=== PATIENT | male | born 1995 | race Two or more races ===

== ENCOUNTER 2020-08-17 04:53 | Emergency (ER) | payer SELFPAY ==
[~2020-08-17] VITALS: Ht 167.6 cm; Wt 83.0 kg
[2020-08-17 04:58] VITALS: BP 133/85
[2020-08-17] MEDS ORDERED: FLUORESCEIN OPHTHALMIC 1 MG STRIP ONE (05:13)
[2020-08-17] MEDS ORDERED: PROPARACAINE OPHTH 0.5%, 15ML ONE (05:13)
--- NOTE | 2020-08-17 05:16 | NUR ---
RIGHT EYE PAIN STARTED HILARY. NO SWELLING/ REDDNESS. SOME BLURRYNESS. UNKNOWN IF FB. PAIN 08/17.
== END 2020-08-17 06:01 | disposition home or self-care (01) ==
LOC: ED 05:55
DX: H57.11 Ocular pain, right eye (principal)
CPT/HCPCS: 99283